=== PATIENT | female | born 2000 | race Caucasian/White ===

== ENCOUNTER 2019-10-14 08:27 | Emergency (ER) | payer BC ==
[~2019-10-14] VITALS: Ht 170.2 cm; Wt 120.1 kg
[2019-10-14] MEDS ORDERED: PRENTAB53 PO (08:35)
[2019-10-14] MEDS ORDERED: IRON27TA2 PO (08:35)
[2019-10-14 10:20] VITALS: BP 136/81
== END 2019-10-14 10:21 | disposition home or self-care (01) ==
LOC: M ED 08:27
DX: F43.20 Adjustment disorder, unspecified (principal); F33.9 Major depressive disorder, recurrent, unspecified; F41.9 Anxiety disorder, unspecified; F17.210 Nicotine dependence, cigarettes, uncomplicated